=== PATIENT | female | born 2000 | race Caucasian/White ===

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

== ENCOUNTER 2021-06-04 19:25 | Emergency (ER) | payer OTHER ==
[~2021-06-04 19:25] MED LIST: DOXYCYCLINE HY100 MG PO; IMITREX50 MG PO; ZADITOR5 ML OS; ZYRTEC10 MG PO
[2021-06-04 20:05] LABS: RED BLOOD COUNT 4.7 M/UL (4.00-5.10); WHITE BLOOD COUNT 7.3 K/UL (4.5-11.0)
[2021-06-04 20:47] LABS: BUN/CREATININE RATIO 13 (0-10)
== END 2021-06-04 22:12 | disposition home or self-care (01) ==
LOC: ER1 19:25
PROVIDERS: Physician Assistant Medical
DX: R07.2 Precordial pain (principal); H00.015 Hordeolum externum left lower eyelid; Z90.49 Acquired absence of other specified parts of digestive tract
CPT/HCPCS: 71045; 80053; 82550; 82553; 83874; 84484; 85025; 85379; 93005; 99285

== ENCOUNTER 2021-09-01 17:59 | Emergency (ER) | payer OTHER ==
[2021-09-01] MEDS ORDERED: ZITHROMAX250 MG PO (21:52)
[2021-09-01] MEDS ORDERED: MEDROL DOSEPAK 24 MG PO (21:52)
== END 2021-09-01 21:58 | disposition home or self-care (01) ==
LOC: ER1 17:59
DX: J02.8 Acute pharyngitis due to other specified organisms (principal); Z20.822 Contact with and (suspected) exposure to COVID-19
CPT/HCPCS: 0240U; 87081; 87880; 99283